=== PATIENT | female | born 1990 | race African-American/Black ===

== ENCOUNTER 2017-03-25 04:31 | Emergency (ER) | payer SELFPAY ==
[~2017-03-25] VITALS: Ht 165.1 cm; Wt 129.0 kg
[2017-03-25] MEDS ORDERED: OLANZAPINE 10 MG/VIAL IM ONE (06:30)
[2017-03-25 08:36] LABS: BASOPHILS % 0.9 % (0.0-2.0); EOSINOPHILS % 1.4 % (0.0-5.0); HEMATOCRIT. 37.1 % (36.0-48.0); HEMOGLOBIN. 12.1 g/dL (12.0-16.0); LYMPHOCYTES % 32.6 % (20.0-50.0); MEAN CORPUSCULAR VOLUME 85.8 fL (81.0-99.0); MEAN PLATELET VOLUME 8.6 fl (7.4-10.4); MONOCYTES % 5.8 % (2.0-8.0); NEUTROPHILS % 59.3 % (40.0-76.0); PLATELET 269 x1000/uL (130-400); RED BLOOD CELL COUNT 4.32 mill/uL (4.2-5.4); RED CELL DISTRIBUTION WIDTH 14.6 % (11.6-14.6)
[2017-03-25 08:51] LABS: CARBON DIOXIDE 24 mEq/L (21-32); CHLORIDE 107 mEq/L (98-107); ETHANOL BLOOD < 10 mg/dL
[2017-03-25 12:54] VITALS: BP 130/90
== END 2017-03-25 13:24 | disposition home or self-care (01) ==
LOC: ER 07:22
DX: F31.9 Bipolar disorder, unspecified (principal); Z91.19 Patient's noncompliance with other medical treatment and regimen; Z91.14 Patient's other noncompliance with medication regimen
CPT/HCPCS: 36415; 80053; 80178; 80307; 80329; 85025; 96372; 99284; G0482; J3490; Z7610